=== PATIENT | female | born 1995 | race Caucasian/White ===

== ENCOUNTER 2018-07-24 05:18 | Emergency (ER) | payer BC ==
[2018-07-24 05:32] VITALS: BMI 25.4
--- NOTE | 2018-07-24 05:44 | ED PDOC ---
Arrival/HPI - General Chief Complaint: Anxiety Time Seen by Provider: 07/24/18 05:26 Historian: Patient - Critical Care Critical Care Minutes: 45 minutes - History of Present Illness Narrative History of Present Illness (Text): 07/24/18 05:45 23 year old female with no pertinent medical history who presents to the e.d. for anxiety attack. Patient states she smoked marijuana earlier this evening and shortly after began to shake and felt anxious. Patient denies losing conciousness or fecal or bowel incontinence. Patient admits to doing Acid earlier this week and ever since reports feeling that "everything is not real". Patient denies any fevers, chills, nausea, vomiting, SI, HI, AH, VH, or any other complaints. PMD:Denies Medical history: denies Allergies: Denies Surgical history: denies Social history: Recreational marijuana, shrooms and LSD use. Time/Duration: 4-6 hours Symptom Onset: Sudden Symptom Course: Unchanged Quality: Other Severity Level: 2 Activities at Onset: Rest Context: Sitting Past Medical History - Provider Review Nursing Documentation Reviewed: Yes - Psychiatric Hx Psychophysiologic Disorder: No Hx Substance Use: Yes (marijuana) Family/Social History - Physician Review Nursing Documentation Reviewed: Yes Family/Social History: No Known Family HX Smoking Status: vape Hx Alcohol Use: Yes Frequency of alcohol use: Socially Hx Substance Use: Yes (marijuana) Allergies/Home Meds Allergies/Adverse Reactions: Allergies No Known Allergies Allergy (Verified 07/24/18 05:32) Home Medications: Home Meds Medication Instructions Recorded Confirmed No Known Home Med 07/24/18 07/24/18 Review of Systems - Physician Review All systems were reviewed & negative as marked: Yes - Review of Systems Constitutional: Normal. absent: Fatigue, Weight Change Eyes: Normal. absent: Vision Changes, Photophobia ENT: Normal. absent: Hearing Changes, Rhinorrhea Respiratory: Normal. absent: SOB, Cough Cardiovascular: Normal. absent: Chest Pain, Syncope Gastrointestinal: Normal. absent: Abdominal Pain, Vomiting Genitourinary Female: Normal. absent: Dysuria Musculoskeletal: Normal. absent: Arthralgias Neurological: Normal. absent: Headache, Dizziness Endocrine: Normal. absent: Diaphoresis Hemo/Lymphatic: Normal. absent: Adenopathy Psychiatric: Normal. absent: Anxiety Physical Exam Vital Signs Reviewed: Yes Vital Signs Temp Pulse Resp BP Pulse Ox 07/24/18 05:30 98.2 F 98 H 20 128/62 99 Temperature: Afebrile Blood Pressure: Normal Pulse: Regular Respiratory Rate: Normal Appearance: Positive for: Well-Appearing, Non-Toxic Pain Distress: None Mental Status: Positive for: Alert and Oriented X 3. No: Confused - Systems Exam Head: Present: Atraumatic, Normocephalic. No: Abrasion Pupils: Present: PERRL. No: Sluggish Extroacular Muscles: Present: EOMI. No: Gaze Palsy Conjunctiva: Present: Normal. No: Injected Mouth: Present: Moist Mucous Membranes. No: Dry Neck: Present: Normal Range of Motion. No: Meningeal Signs, JVD Respiratory/Chest: Present: Clear to Auscultation, Good Air Exchange Cardiovascular: Present: Regular Rate and Rhythm, Normal S1, S2. No: Murmurs, Bradycardic Abdomen: Present: Normal Bowel Sounds. No: Tenderness, Distention Upper Extremity: Present: Normal Inspection. No: Cyanosis, Edema Lower Extremity: Present: Normal Inspection. No: Edema Neurological: Present: CN II-XII Intact, Speech Normal Skin: Present: Dry, Normal Color Psychiatric: Present: Oriented x 3, Normal Insight Medical Decision Making ED Course and Treatment: 07/24/18 05:50 23 year old female presents for anxiety attack. Plan: UDS PO Xanax 07/24/18 05:51 Patient refused PO Xanax 07/24/18 06:23 Patient decided to sign out AMA. Patient made aware of risk involved with leaving AMA, including and demise. Disposition/Present on Arrival - Present on Arrival Any Indicators Present on Arrival: No History of DVT/PE: No History of Uncontrolled Diabetes: No Urinary Catheter: No History of Decub. Ulcer: No History Surgical Site Infection Following: None - Disposition Have Diagnosis and Disposition been Completed?: No Diagnosis: Left against medical advice Disposition: AGAINST MEDICAL ADVICE Disposition Time: 06:24 Condition: UNKNOWN Forms: [employer] ([place])
[2018-07-24 06:25] VITALS: BP 118/60; PULSE 87; RESP 18; TEMP 97.9; O2SAT 98
[2018-07-24 06:33] LABS: BARBITURATES, UR POSITIVE (NEGATIVE); BENZODIAZEPINES, UR NEGATIVE (NEGATIVE); OPIATES, UR NEGATIVE (NEGATIVE); PHENCYCLIDINE, UR NEGATIVE (NEGATIVE)
== END 2018-07-24 06:25 | disposition left against medical advice (07) ==
LOC: ED 05:18
DX: F41.9 Anxiety disorder, unspecified (principal)
CPT/HCPCS: 99283; G0480